=== PATIENT | male | born 1960 | race African-American/Black ===

== ENCOUNTER → 2024-11-11 23:59 | Outpatient (BNV) | payer BC, SELFPAY | PROVIDERS: Visit Provider Internal Medicine Cardiovascular Disease | DX: I21.09 ST elevation (STEMI) myocardial infarction involving other coronary artery of anterior wall (principal) | CPT/HCPCS: 93452; 99152 ==

== ENCOUNTER 2024-11-21 09:27 | Outpatient (AMB) | payer BC, SELFPAY ==
--- OUTSIDE RECORDS SUMMARY | 2024-11-21 09:50 | XMS_ITS | Encounter Summary ---
Author Organization [facility] Address [address] [place] [address] Care Team Providers Care Global Account Executive Name Role Phone Marcelino Pope MD Primary Care Provider [phone] Encounter Details Date Type Department Care Team (Late st Contact Info) Description 10/18/2024 Lab Requisition [facility] - Main Lab [address] [facility] [place] [id number] Marcelino Pope MD [address] [place] [address] Urgency of urination Social History Tobacco Use Types Packs/Day Years Used Date Smoking Tobacco: Never Assessed Sex and Gender Information Value Date Recorded Sex Assigned at Not on file Legal Sex Male 7:37 AM EST Gender Identity Not on file Sexual Orientation Not on file documented as of this encounter Plan of Treatment Scheduled Orders Name Type Priority Associated Diagnoses Orde r Schedule Urinalysis with reflex microscopic and culture Lab Routine Urgency of urination Ordered: 10/18/2024 documented as of this encounter Visit Diagnoses Diagnosis Urgency of urination documented in this encounter Care Teams Global Account Executive Relationship Specialty Start Date End Date Marcelino Pope MD [address] [place] [address] PCP - General Internal Medicine 10/18/24 documented as of this encounter
--- NOTE | 2024-11-21 09:57 | MHC.OFFVIS ---
Vital Signs 11/21/24 10:01 Height 5 ft 5 in Weight 186 lb 1.122 oz BMI 31.0 BP 110/70 Blood Pressure Location Lt brachial Position Sitting Pulse 72 Intake Visit Reasons: fu cardiac cath 11/11 Intake Note: f/up-cath-11/11 Physician Specialist Required: No Accompanied by: Self / Same As Patient Allergies No Known Allergies Allergy (Verified 11/21/24 10:01) Medication List - Last Reconciled 11/21/24 by John Rosas MD amlodipine 5 mg PO DAILY aspirin (Adult Low Dose Aspirin) 81 mg PO DAILY atorvastatin 40 mg PO DAILY cilostazol 50 mg PO BID clopidogrel 75 mg PO DAILY insulin glargine (Basaglar KwikPen U-100 Insulin) 70 units subcut BEDTIME isosorbide mononitrate ER 30 mg PO DAILY metoprolol succinate ER 50 mg PO DAILY HPI Comments Details: [age] year gentleman who is here for follow-up. He was seen at [facility] during STEMI call recently when he presented with anterolateral ST elevations. He was having vomiting and diarrhea preceding the presentation for 3 weeks. He said he started feeling some pressure-like feeling and came to the emergency department. Initial EKGs showed hyperacute T-waves which evolved into ST elevations in the anterolateral leads. He was emergently taken for cardiac catheterization. He has background history of LAD PCI approximately 20 years ago when he presented with ACS in the setting of cocaine use. He subsequently had normal LVEF. Cardiac catheterization showed patent LAD stent with 70% circumflex stenosis and 95% apical LAD stenosis. Apical LAD was felt to be a very small territory and we decided to medically treat him. 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 He was sent home on aspirin and Plavix and was advised to stop the cilostazol. It appears he is taking the cilostazol along with aspirin and Plavix. He is denying any significant symptoms currently. He continues to smoke but is trying to cut back. [facility] Surgical History (Updated 11/21/24 @ 10:08 by Karen Scott CMA) S/P cardiac cath Family History (Updated 11/21/24 @ 10:10 by Karen Scott CMA) Mother Heart attack Father Prostate cancer Social History (Updated 11/21/24 @ 10:11 by Karen M Du Scott, ASSISTANT FINANCIAL ACCOUNTANT) Alcohol intake: never Patient Tobacco Use Status: Former Tobacco user Review of Systems Const Denies chills, Denies fatigue, Denies fever(s), Denies frequent falls, Denies weakness, Denies weight gain and Denies weight loss ENT Denies dizziness Card Denies chest pain, Denies leg edema, Denies lightheadedness, Denies palpitations, Denies dyspnea, Denies dyspnea on exertion and Denies orthopnea Resp Denies cough, Denies dyspnea and Denies dyspnea on exertion GI Denies bloating and Denies change in bowel habits Musc Denies muscle weakness, Denies numbness and Denies tingling Neuro Denies dizziness, Denies frequent falls, Denies numbness, Denies tingling and Denies weakness Endo Denies fatigue and Denies palpitations Physical Exam Vital Signs: Last Vital Signs Pulse 72 11/21/24 10:01 BP 110/70 11/21/24 10:01 BMI result Body Mass Index 31.0 GENERAL APPEARANCE: in no acute distress, pleasant. NECK: no carotid bruit, no jugular venous distention. SKIN: no suspicious lesions, warm and dry. HEART: no murmurs, regular rate and rhythm. LUNGS: clear to auscultation bilaterally. ABDOMEN: soft, nontender. EXTREMITIES: no edema. PERIPHERAL PULSES: equal. NEUROLOGIC: No gross deficits, AAO X 3 Office Procedures EKG Details: Sinus rhythm 72 beats per minute, normal axis, inferior T-wave inversions, anteroseptal infarct, QTC 392 milliseconds [id number], Complete Assessment & Plan Assessment & Plan (1) Acute coronary syndrome: Code(s): I24.9 - Acute ischemic heart disease, unspecified Category: Medical (2) Coronary artery disease: Code(s): I25.10 - Atherosclerotic heart disease of [place] coronary artery without angina pectoris Category: Medical Plan [age] year gentleman with coronary artery disease who is here for follow-up. He has known history of LAD PCI in the past. Recent presentation with anterolateral ST-elevation where cardiac catheterization showed apical LAD severe stenosis. This was small territory and was medically managed. Left ventriculography showed normal LVEF without any significant wall motion abnormalities. Clinically has been stable. I have advised him to stop the aspirin and continue clopidogrel and cilostazol. Blood pressure well controlled. He will see us back in 3 months. Thank you for allowing me to participate in the care of your patient. Please feel free to contact me if you have any questions. Coding Level of Care Code Est Pt Level 4 (87623) Diagnoses Acute coronary syndrome I24.9 Coronary artery disease I25.10 CPT Codes EKG - CPT: 39731-[id number], Complete ([id number])
[2024-11-21 10:01] VITALS: BP 110/70; PULSE 72; BMI 31.0
== END 2024-11-21 11:00 | disposition home or self-care (01) ==
PROVIDERS: Visit Provider Internal Medicine Cardiovascular Disease
DX: I24.9 Acute ischemic heart disease, unspecified (principal); I25.10 Atherosclerotic heart disease of native coronary artery without angina pectoris
CPT/HCPCS: 93010; 99214

== ENCOUNTER → 2024-11-21 09:27 | Outpatient (BNVA) | payer BC, SELFPAY | PROVIDERS: Visit Provider Internal Medicine Cardiovascular Disease | DX: I25.10 Atherosclerotic heart disease of native coronary artery without angina pectoris (principal) | CPT/HCPCS: 93005 ==

== ENCOUNTER 2025-04-26 14:19 | Outpatient (AMB) | payer BC, SELFPAY ==
[2025-04-26 14:23] VITALS: BP 110/54; BMI 31.2
--- NOTE | 2025-04-26 14:23 | A.OFFVIS_ITS ---
Vital Signs 04/26/25 14:23 Height 5 ft 5 in Weight 187 lb 6.287 oz BMI 31.2 BP 110/54 L Blood Pressure Location Lt brachial Position Sitting Intake Visit Reasons: 4 mth f/up Gynecological Assistant Required: No Accompanied by: Self / Same As Patient Allergies No Known Allergies Allergy (Verified 04/26/25 14:27) Medication List - Last Reconciled 04/26/25 by Tomer Mitcehll NP amlodipine 5 mg PO DAILY atorvastatin 40 mg PO DAILY cilostazol 50 mg PO BID clopidogrel 75 mg PO DAILY empagliflozin (Jardiance) 25 mg PO DAILY insulin degludec (Tresiba FlexTouch U-100 insulin) 70 units subcut BEDTIME isosorbide mononitrate ER 30 mg PO DAILY metoprolol succinate ER 50 mg PO DAILY tirzepatide (Mounjaro) 0.7 mg subcut QWEEK HPI Comments Details: This is a 64-year-old male patient coming in for a follow-up visit. Patient with history of coronary artery disease with prior PCI to the LAD in 2006, hypertension, hyperlipidemia, diabetes, and smoker. Patient was in the emergency room back in October for chest pain where patient had acute STT wave changes and therefore was taken for emergent cardiac catheterization at [facility] that showed 70% circumflex stenosis and 95% apical LAD stenosis with patent LAD stent. It was noted that patient had a very small territory in the apical LAD and therefore was decided to medically manage his symptoms. Patient has been going to cardiac rehab twice a day and has been tolerating this well. Patient states that he was once seen in the emergency room mid November for chest pain however everything was okay and patient was discharged home. Today, patient is reporting feeling well overall without any cardiac symptoms of exertional chest pain, shortness of breath, palpitations, dizziness, orthopnea, PND, leg edema, presyncope or syncope. Unfortunately, patient continues to smoke 7 cigarettes a day and states that he is working on cutting back. [facility] Surgical History S/P cardiac cath Family History Mother Heart attack Father Prostate cancer Social History Alcohol intake: never Patient Tobacco Use Status: Former Tobacco user Review of Systems Const Denies daytime sleepiness, Denies difficulty sleeping, Denies snoring, Denies stops breathing during sleep and Denies weakness Card Denies chest pain, Denies rapid heart rate, Denies irregular heart rhythm, Denies claudication, Denies leg edema, Denies lightheadedness, Denies palpitations, Denies dyspnea, Denies dyspnea on exertion, Denies orthopnea, Denies paroxysmal nocturnal dyspnea and Denies slow heart rate Resp Denies cough, Denies dyspnea, Denies dyspnea on exertion and Denies snoring GI Reports no additional complaints, Denies hematochezia, Denies change in stool character and Denies dyspepsia Musc Denies abnormal gait, Denies muscle weakness and Denies numbness Neuro Denies abnormal gait, Denies numbness and Denies weakness Endo Denies palpitations Physical Exam Vital Signs: Last Vital Signs BP 110/54 L 04/26/25 14:23 BMI result Body Mass Index 31.2 Const General: cooperative, healthy appearing, comfortable and no acute distress Orientation/consciousness: patient oriented x3 HEENT Head: Yes normal to inspection Neck Neck: Yes normal visual inspection, Yes trachea midline and Yes supple Chest Chest palpation & inspection: normal inspection of the chest Resp Effort & Inspection: normal respiratory effort Auscultation: clear to auscultation bilaterally, no crackles, no rales, no rhonchi and no wheezes Cardio Jugular venous distension: no JVD Palpation: normal PMI Rate: regular rate Rhythm: regular rhythm Heart sounds: S1 normal heart sound present, S2 normal heart sound present, no click, no gallops, no murmurs and no rubs Peripheral pulses: Peripheral pulses 2+ throughout GI Inspection: Yes normal to inspection Palpation (GI): Soft to palpation Auscultation: normal bowel sounds Skin General skin exam: no rashes or lesions noted Neuro General: patient oriented x3 Extrem General: Yes normal to inspection, No no pedal edema and No calf tenderness Psych Appearance: grossly normal Mental Status: mental status grossly normal Speech and movement: Normal speech and movement present Assessment & Plan Assessment & Plan (1) Coronary artery disease: Code(s): I25.10 - Atherosclerotic heart disease of [place] coronary artery without angina pectoris Category: Medical Plan: Coronary artery disease with history of PCI to the LAD back in 2006. Given his recent chest pain symptoms back in November, patient underwent an emergent cardiac catheterization at [facility] with Dr. Rosas on 11/11/2024 that showed patent LAD stent with apical LAD stenosis of 90%, 70% stenosis in the distal LCX, and 100% stenosis in the proximal RCA. Given the small size territory in the apical LAD, patient was decided to be managed medically. Patient has lost resolve was stopped at his last office visit and was recommended to continue with Plavix and cilostazol therapy. Continue the same. Continue statin therapy with an LDL goal less than 70. No recent lipid profile and therefore we will get this. Continue with metoprolol and isosorbide for antianginal therapy. Continue with cardiac rehab. Discussed in detail about complete smoking cessation. Patient states that he has cut back to 7 cigarettes a day and is still working on it and he was commended for his efforts. Continue with a heart healthy diet. We will monitor his labs periodically. (2) Hypertension: Code(s): I10 - Essential (primary) hypertension Category: Medical Plan: Blood pressure today is well-controlled. Continue current regimen with a goal less than 130/80. Advised on monitoring blood pressures at home and maintaining a log. Advised on low-salt diet. (3) Diabetes: Code(s): E11.9 - Type 2 diabetes mellitus without complications Category: Medical Plan: Continue with the aggressive diabetes management with an A1c goal less than 7%, followed by PCP. Advised on heart healthy diet, regular exercise, losing weight, med compliance, complete smoking cessation, and aggressive management of vascular risk factors. Follow up in 4 months. In the interim, patient will call the office with any concerns or change in symptoms. Advised to seek ER care in case of exertional chest pain not resolved with rest. This note was generated using voice recognition software. While every effort has been made to ensure accuracy and proper diesel engine mechanic, there may be occasional errors that could affect the content or meaning of the described symptoms. Orders: Orders Lipid Panel Today I25.10 - Atherosclerotic heart disease of [place] coronary artery without angina pectoris Basic Metabolic Panel Today I25.10 - Atherosclerotic heart disease of [place] coronary artery without angina pectoris Complete Blood Count no Diff Today I25.10 - Atherosclerotic heart disease of [place] coronary artery without angina pectoris Coding Level of Care Code Est Pt Level 4 (03226) Complex EM visit Add On G2211 Diagnoses Coronary artery disease I25.10 Hypertension I10 Diabetes E11.9 Time Spent (min) 33 Comment Time spent in reviewing the chart, test results, assessment, counseling and documentation.
--- OUTSIDE RECORDS SUMMARY | 2025-04-26 16:04 | XMS_ITS | Clinical Summary ---
Author Organization [facility] Address [address] [place] [address] Phone Care Team Providers Care All Source Intelligence Technician Name Role Phone Marcelino Pope MD Primary Care Provider [phone] Encounters Date Type Department Care Team Description 03/01/[address] [facility] [address] [place] [phone] Lio Newman MD Malignant neoplasm of prostate ([facility] V24, [facility] V28) 10/18/[address] [facility] [address] [place] [address] Marcelino Pope MD Urgency of urination; Mild intermittent asthma, uncomplicated; Essential (primary) hypertension; Type 2 diabetes mellitus with hyperglycemia ([facility] V24, [facility] V28); Encounter for general adult medical examination without abnormal findings; Hyperlipidemia, unspecified; Unspecified osteoarthritis, unspecified site; Anemia, unspecified; Vitamin D deficiency, unspecified from Last 3 Months Social History Tobacco Use Types Packs/Day Years Used Date Smoking Tobacco: Never Assessed Sex and Gender Information Value Date Recorded Sex Assigned at Not on file Legal Sex Male 7:37 AM EST Gender Identity Not on file Sexual Orientation Not on file Plan of Treatment Health Maintenance Due Date Last Done Comments Colorectal Cancer Screening: Colonoscopy 1960 Diabetes: Annual Foot Exam 12/26/1969 Diabetes: Annual Retina Eye Exam 12/26/1969 Hepatitis A Vaccines (1 of 2 - Risk 2-dose series) 12/26/1978 RSV Immunization Adult Patients (1 - Risk 50-74 years 1-dose series) 12/26/2009 Hepatitis B Vaccines (3 of 3 - 19+ 3-dose series) 11/28/2015 10/03/2015, 05/03/2015, 04/02/2015 Pneumococcal Vaccine: 50+ Years (2 of 2 - PCV) 02/05/2018 02/05/2017 Zoster Vaccines (2 of 3) 05/15/2021 03/20/2021 Depression Screening 06/20/2024 Abdominal Aortic Aneurysm (AAA) Screen 10/18/2024 Hepatitis C Screening 10/18/2024 Social Influencers of Health Screening 10/18/2024 Falls Risk Assessment 12/26/2024 COVID-19 Vaccine (4 - 2024-2 6 season) 2025 06/12/2021, 08/25/2020, 08/04/2020 Influenza Vaccine (#1) 2025 02/05/2017 DTaP,Tdap,and Td Vaccines (2 - Td or Tdap) 04/02/2025 04/02/2015 Diabetes: Blood Sugar Contro l Test (HGBA1C) 09/30/2025 04/01/2025, 12/18/2024 Diabetes: Annual Urine Albumin-Creatinine Ratio (uACR) 04/01/2026 04/01/2025 Diabetes: Annual GFR (Glomerular Filtration Rate) 04/01/2026 04/01/2025, 12/18/2024 Hypertension/CHF/CAD Annual BMP Blood Test 04/01/2026 04/01/2025, 12/18/2024 Cholesterol Screening (Lipid Panel) 04/01/2030 04/01/2025, 12/18/2024 HIB Vaccines Aged Out No longer eligi ble based on patient's age to complete this topic HPV Vaccines Aged Out No longer eligi ble based on patient's age to complete this topic IPV Vaccines Aged Out No longer eligi ble based on patient's age to complete this topic MMR Vaccines Aged Out No longer eligi ble based on patient's age to complete this topic Meningococcal ACWY Vaccine Aged Out N o longer eligible based on patient's age to complete this topic Meningococcal B Vaccine Aged Out No l onger eligible based on patient's age to complete this topic RSV Immunization Patients Under 20 months Aged Out No longer eligible b ased on patient's age to complete this topic Varicella Vaccines Aged Out No longer eligible based on patient's age to complete this topic Procedures Procedure Name Priority Date/Time Associated Diagnosis Comments CBC WITH AUTO DIFFERENTIAL Routine 04/01/2025 1:38 PM EDT Urgency of urination Mild intermittent asthma, uncomplicated Essential (primary) hypertension Type 2 diabetes mellitus with hyperglycemia ([facility] V24, [facility] V28) Encounter for general adult medical examination without abnormal findings Hyperlipidemia, unspecified Unspecified osteoarthritis, unspecified site Anemia, unspecified Vitamin D deficiency, unspecified URINALYSIS WITH REFLEX MICROSCOPIC AND CULTURE Routine 04/01/2025 1:38 PM EDT Urgency of urination Mild intermittent asthma, uncomplicated Essential (primary) hypertension Type 2 diabetes mellitus with hyperglycemia ([facility] V24, [facility] V28) Encounter for general adult medical examination without abnormal findings Hyperlipidemia, unspecified Unspecified osteoarthritis, unspecified site Anemia, unspecified Vitamin D deficiency, unspecified VITAMIN D 25 HYDROXY Routine 04/01/2025 1:38 PM EDT Urgency of urination Mild intermittent asthma, uncomplicated Essential (primary) hypertension Type 2 diabetes mellitus with hyperglycemia ([facility] V24, [facility] V28) Encounter for general adult medical examination without abnormal findings Hyperlipidemia, unspecified Unspecified osteoarthritis, unspecified site Anemia, unspecified Vitamin D deficiency, unspecified FOLATE Routine 04/01/2025 1:38 PM EDT Urgency of urination Mild intermittent asthma, uncomplicated Essential (primary) hypertension Type 2 diabetes mellitus with hyperglycemia ([facility] V24, [facility] V28) Encounter for general adult medical examination without abnormal findings Hyperlipidemia, unspecified Unspecified osteoarthritis, unspecified site Anemia, unspecified Vitamin D deficiency, unspecified VITAMIN B12 Routine 04/01/2025 1:38 PM EDT Urgency of urination Mild intermittent asthma, uncomplicated Essential (primary) hypertension Type 2 diabetes mellitus with hyperglycemia ([facility] V24, [facility] V28) Encounter for general adult medical examination without abnormal findings Hyperlipidemia, unspecified Unspecified osteoarthritis, unspecified site Anemia, unspecified Vitamin D deficiency, unspecified URIC ACID Routine 04/01/2025 1:38 PM EDT Urgency of urination Mild intermittent asthma, uncomplicated Essential (primary) hypertension Type 2 diabetes mellitus with hyperglycemia ([facility] V24, [facility] V28) Encounter for general adult medical examination without abnormal findings Hyperlipidemia, unspecified Unspecified osteoarthritis, unspecified site Anemia, unspecified Vitamin D deficiency, unspecified THYROID STIMULATING HORMONE Routine 04/01/2025 1:38 PM EDT Urgency of urination Mild intermittent asthma, uncomplicated Essential (primary) hypertension Type 2 diabetes mellitus with hyperglycemia ([facility] V24, [facility] V28) Encounter for general adult medical examination without abnormal findings Hyperlipidemia, unspecified Unspecified osteoarthritis, unspecified site Anemia, unspecified Vitamin D deficiency, unspecified SEDIMENTATION RATE Routine 04/01/2025 1: 38 PM EDT Urgency of urination Mild intermittent asthma, uncomplicated Essential (primary) hypertension Type 2 diabetes mellitus with hyperglycemia ([facility] V24, [facility] V28) Encounter for general adult medical examination without abnormal findings Hyperlipidemia, unspecified Unspecified osteoarthritis, unspecified site Anemia, unspecified Vitamin D deficiency, unspecified MICROALBUMIN CREATININE URINE RATIO Routine 04/01/2025 1:38 PM EDT Urgency of urination Mild intermittent asthma, uncomplicated Essential (primary) hypertension Type 2 diabetes mellitus with hyperglycemia ([facility] V24, [facility] V28) Encounter for general adult medical examination without abnormal findings Hyperlipidemia, unspecified Unspecified osteoarthritis, unspecified site Anemia, unspecified Vitamin D deficiency, unspecified LIPID PANEL WITH REFLEX TO DIRECT LDL Routine 04/01/2025 1:38 PM EDT Urgency of urination Mild intermittent asthma, uncomplicated Essential (primary) hypertension Type 2 diabetes mellitus with hyperglycemia ([facility] V24, [facility] V28) Encounter for general adult medical examination without abnormal findings Hyperlipidemia, unspecified Unspecified osteoarthritis, unspecified site Anemia, unspecified Vitamin D deficiency, unspecified HEMOGLOBIN A1C Routine 04/01/2025 1:38 PM EDT Urgency of urination Mild intermittent asthma, uncomplicated Essential (primary) hypertension Type 2 diabetes mellitus with hyperglycemia ([facility] V24, [facility] V28) Encounter for general adult medical examination without abnormal findings Hyperlipidemia, unspecified Unspecified osteoarthritis, unspecified site Anemia, unspecified Vitamin D deficiency, unspecified COMPREHENSIVE METABOLIC PANEL Routine 04/01/2025 1:38 PM EDT Urgency of urination Mild intermittent asthma, uncomplicated Essential (primary) hypertension Type 2 diabetes mellitus with hyperglycemia ([facility] V24, [facility] V28) Encounter for general adult medical examination without abnormal findings Hyperlipidemia, unspecified Unspecified osteoarthritis, unspecified site Anemia, unspecified Vitamin D deficiency, unspecified CBC AND DIFFERENTIAL Routine 04/01/2025 1:38 PM EDT Urgency of urination Mild intermittent asthma, uncomplicated Essential (primary) hypertension Type 2 diabetes mellitus with hyperglycemia ([facility] V24, [facility] V28) Encounter for general adult medical examination without abnormal findings Hyperlipidemia, unspecified Unspecified osteoarthritis, unspecified site Anemia, unspecified Vitamin D deficiency, unspecified URINALYSIS WITH REFLEX MICROSCOPIC AND CULTURE Routine 04/01/2025 1:38 PM EDT Urgency of urination Mild intermittent asthma, uncomplicated Essential (primary) hypertension Type 2 diabetes mellitus with hyperglycemia ([facility] V24, [facility] V28) Encounter for general adult medical examination without abnormal findings Hyperlipidemia, unspecified Unspecified osteoarthritis, unspecified site Anemia, unspecified Vitamin D deficiency, unspecified PROSTATE SPECIFIC ANTIGEN DIAGNOSTIC Routine 03/01/2025 10:38 AM EDT Malignant neoplasm of prostate ([facility] V24, [facility] V28) from Last 3 Months Results * (ABNORMAL) Urinalysis with reflex microscopic and culture (04/01/2025 1:38 PM EDT) Specific [place] Urine 1.030 1.003 - 1.030 LAB URINALYSIS - AUTOMATED METHOD 04/01/2025 2:34 PM EDT [facility] pH, Urine 5.0 5.0 - 8.0 pH LAB URINALYSIS - AUTOMATED METHOD 04/01/2025 2:34 PM EDT [facility] Leukocytes, Urine Negative Negative LAB URINALYSIS - AUTOMATED METHOD 04/01/2025 2:34 PM EDT [facility] Nitrite, Urine Negative Negative LAB URINALYSIS - AUTOMATED METHOD 04/01/2025 2:34 PM EDT [facility] Protein, Urine Negative <=Trace mg/dL LAB URINALYSIS - AUTOMATED METHOD 04/01/2025 2:34 PM EDT [facility] Glucose, Urine >=1000(A) Negative mg/dL LAB URINALYSIS - AUTOMATED METHOD 04/01/2025 2:34 PM EDT [facility] Ketones, Urine Negative Negative mg/dL LAB URINALYSIS - AUTOMATED METHOD 04/01/2025 2:34 PM EDT [facility] Urobilinogen , Urine 0.2 0.2 - 1.0 mg/dL LAB URINALYSIS - AUTOMATED METHOD 04/01/2025 2:34 PM EDT [facility] Bilirubin, Urine Negative Negative LAB URINALYSIS - AUTOMATED METHOD 04/01/2025 2:34 PM EDT [facility] Blood, Urine Negative Negative LAB URINALYSIS - AUTOMATED METHOD 04/01/2025 2:34 PM EDT [facility] Urine Urine specimen obtained by clean catch procedure / Unknown 04/01/2025 1:38 PM EDT 04/01/2025 2:16 PM EDT us Marcelino Pope MD LAB URINE ORDERABLES Final Res ult [facility] [address] [place] [address], * Lipid panel with reflex to direct LDL (04/01/2025 1:38 PM EDT) Cholesterol 132 0 - 200 mg/dL LAB CHEMISTRY METHOD 04/01/2025 3:51 PM EDT [facility] Triglycerides 48 0 - 150 mg/dL LAB CHEMISTRY METHOD 04/01/2025 3:51 PM EDT [facility] HDL 58 >=40 mg/dL LAB CHEMISTRY METHOD 04/01/2025 3:51 PM EDT [facility] LDL Calculated 64 0 - 100 mg/dL LAB CHEMISTRY METHOD 04/01/2025 3:51 PM EDT [facility] Comment:Estimated LDL Calcul ated using equation: Total cholesterol - HDL cholesterol - (Triglycerides/5) VLDL Cholesterol Juancarlos 9.6 mg/dL LAB CHEMISTRY METHOD 04/01/2025 3:51 PM EDT [facility] Non HDL Chol. (LDL+VLDL) 74 <145 mg/dL LAB CHEMISTRY METHOD 04/01/2025 3:51 PM EDT [facility] Chol/HDL Ratio 2.3 0.0 - 4.4 LAB CHEMISTRY METHOD 04/01/2025 3:51 PM EDT [facility] Blood Venous blood specimen / Unknown 04/01/2025 1:38 PM EDT 04/01/2025 2:14 PM EDT Marcelino Pope MD LAB BLOOD ORDERABLES Final Res ult [facility] [address] [place] [address], * (ABNORMAL) CBC auto differential (04/01/2025 1:38 PM EDT) WBC 6.3 4.8 - 10.8 K/mcL LAB HEMETOLOGY METHOD 04/01/2025 2:40 PM EDT [facility] RBC 5.90(H) 4.50 - 5.50 M/mcL LAB HEMETOLOGY METHOD 04/01/2025 2:40 PM EDT [facility] Hemoglobin 15.9 13.5 - 17.5 g/dL LAB HEMETOLOGY METHOD 04/01/2025 2:40 PM EDT [facility] Hematocrit 49.0 42.0 - 54.0 % LAB HEMETOLOGY METHOD 04/01/2025 2:40 PM EDT [facility] MCV 83.3 79.0 - 98.0 FL LAB HEMETOLOGY METHOD 04/01/2025 2:40 PM EDT [facility] MCH 27.0 27.0 - 32.0 pcg LAB HEMETOLOGY METHOD 04/01/2025 2:40 PM EDT [facility] MCHC 32.4 32.0 - 37.0 g/dL LAB HEMETOLOGY METHOD 04/01/2025 2:40 PM EDT [facility] RDW 14.3 11.0 - 15.0 % LAB HEMETOLOGY METHOD 04/01/2025 2:40 PM T [facility] Platelets 303 130 - 400 K/mcL LAB HEMETOLOGY METHOD 04/01/2025 2:40 PM EDT [facility] MPV 9.9 7.0 - 11.0 FL LAB HEMETOLOGY METHOD 04/01/2025 2:40 PM EDT [facility] NRBC 0.0 <1.0 % LAB HEMETOLOGY METHOD 04/01/2025 2:40 PM EDT [facility] NRBC Absolute 0.00 <0.10 K/mcL LAB HEMETOLOGY METHOD 04/01/2025 2:40 PM EDT [facility] Neutrophils Relative 60.8 % LAB HEMETOLOGY METHOD 04/01/2025 2:40 PM EDT [facility] Lymphocytes Relative 27.0 % LAB HEMETOLOGY METHOD 04/01/2025 2:40 PM EDT [facility] Monocytes Relative 8.9 % LAB HEMETOLOGY METHOD 04/01/2025 2:40 PM EDT [facility] Eosinophils Relative 2.2 % LAB HEMETOLOGY METHOD 04/01/2025 2:40 PM EDT [facility] Basophils Relative 0.8 % LAB HEMETOLOGY METHOD 04/01/2025 2:40 PM EDT [facility] Immature Granulocytes Relative 0.3 % LAB HEMETOLOGY METHOD 04/01/2025 2:40 PM EDT [facility] Neutrophils Absolute 3.83 1.50 - 7.00 K/mcL LAB HEMETOLOGY METHOD 04/01/2025 2:40 PM EDT [facility] Lymphocytes Absolute 1.70 1.00 - 5.00 K/mcL LAB HEMETOLOGY METHOD 04/01/2025 2:40 PM EDT [facility] Monocytes Absolute 0.56 0.20 - 1.00 K/mcL LAB HEMETOLOGY METHOD 04/01/2025 2:40 PM EDT [facility] Eosinophils Absolute 0.14 0.00 - 0.50 K/mcL LAB HEMETOLOGY METHOD 04/01/2025 2:40 PM EDT [facility] Basophils Absolute 0.05 0.00 - 0.20 K/mcL LAB HEMETOLOGY METHOD 04/01/2025 2:40 PM EDT [facility] Immature Granulocytes Absolute 0.02 0.00 - 0.03 K/mcL LAB HEMETOLOGY METHOD 04/01/2025 2:40 PM EDT [facility] Blood Venous blood specimen / Unknown 04/01/2025 1:38 PM EDT 04/01/2025 2:17 PM EDT us Marcelino Pope MD LAB BLOOD ORDERABLES Final Res ult [facility] [address] [place] [address], * Microalbumin creatinine urine ratio (04/01/2025 1:38 PM EDT) Creatinine, Urine 114.0 mg/dL LAB CHEMISTRY METHOD 04/01/2025 4:15 PM EDT [facility] Microalb, Ur 15.0 0.0 - 29.0 mg/L LAB CHEMISTRY METHOD 04/01/2025 4:15 PM EDT [facility] Microalb/Creat Ratio 13 <30 mg/g creat LAB CHEMISTRY METHOD 04/01/2025 4:15 PM EDT [facility] Urine Urine specimen obtained by clean catch procedure / Unknown 04/01/2025 1:38 PM EDT 04/01/2025 2:15 PM EDT Marcelino Pope MD LAB URINE ORDERABLES Final Res ult Performing Organization Address [facility]/ZIP Co de Phone Number [facility] [address] [place] [address], [place] [phone] * (ABNORMAL) Vitamin D 25 hydroxy (04/01/2025 1:38 PM EDT) [facility] Vit D, 25-Hydroxy 15.3(L) 30.0 - 80.0 ng/mL LAB CHEMISTRY METHOD 04/01/2025 4:56 PM EDT [facility] Blood Venous blood specimen / Unknown 04/01/2025 1:38 PM EDT 04/01/2025 2:14 PM EDT Marcelino Pope MD LAB BLOOD ORDERABLES Final Res ult Performing Organization Address [facility]/ZIP Co de Phone Number [facility] [address] [place] [address], [place] [phone] * (ABNORMAL) Sedimentation rate (04/01/2025 1:38 PM EDT) [facility] Sed Rate 47(H) 0 - 20 mm/hr LAB HEMETOLOGY METHOD 04/01/2025 2:37 PM EDT [facility] Blood Venous blood specimen / Unknown 04/01/2025 1:38 PM EDT 04/01/2025 2:17 PM EDT Marcelino Pope MD LAB BLOOD ORDERABLES Final Res ult Performing Organization Address [facility]/ZIP Co de Phone Number [facility] [address] [place] [address], [place] [phone] * (ABNORMAL) Uric acid (04/01/2025 1:38 PM EDT) Uric Acid 3.5(L) 3.7 - 9.2 mg/dL LAB CHEMISTRY METHOD 04/01/2025 3:27 PM EDT [facility] Blood Venous blood specimen / Unknown 04/01/2025 1:38 PM EDT 04/01/2025 2:14 PM EDT Marcelino Pope MD LAB BLOOD ORDERABLES Final Res ult Performing Organization Address [facility]/ZIP Co de Phone Number [facility] [address] [place] [address], [place] [phone] * Thyroid stimulating hormone (04/01/2025 1:38 PM EDT) TSH 1.08 0.40 - 4.00 mcIU/mL LAB CHEMISTRY METHOD 04/01/2025 4:56 PM EDT [facility] Blood Venous blood specimen / Unknown 04/01/2025 1:38 PM EDT 04/01/2025 2:14 PM EDT Marcelino Pope MD LAB BLOOD ORDERABLES Final Res ult Performing Organization Address City/[facility]/ZIP Co de Phone Number [facility] [address] [place] [address], [place] [phone] * (ABNORMAL) Hemoglobin A1c (04/01/2025 1:38 PM EDT) [facility] Hemoglobin A1C 7.9(H) <6.5 % LAB CHEMISTRY METHOD 04/01/2025 9:48 PM EDT [facility] Mean Bld Glu Estim. 180 mg/dL LAB CHEMISTRY METHOD 04/01/2025 9:48 PM EDT [facility] Blood Venous blood specimen / Unknown 04/01/2025 1:38 PM EDT 04/01/2025 2:17 PM EDT us Marcelino Pope MD LAB BLOOD ORDERABLES Final Res ult [facility] [address] [place] [address], [place] [phone] * Folate (04/01/2025 1:38 PM EDT) [facility] Folate 15.2 2.8 - 17.0 ng/ml LAB CHEMISTRY METHOD 04/01/2025 3:51 PM EDT [facility] Blood Venous blood specimen / Unknown 04/01/2025 1:38 PM EDT 04/01/2025 2:14 PM EDT us Marcelino Pope MD LAB BLOOD ORDERABLES Final Res ult [facility] [address] [place] [address], [place] [phone] * Vitamin B12 (04/01/2025 1:38 PM EDT) [facility] Vitamin B-12 322 250 - 900 pcg/mL LAB CHEMISTRY METHOD 04/01/2025 3:51 PM EDT [facility] Blood Venous blood specimen / Unknown 04/01/2025 1:38 PM EDT 04/01/2025 2:14 PM EDT us Marcelino Pope MD LAB BLOOD ORDERABLES Final Res ult [facility] [address] [place] [address], [place] [phone] * Comprehensive metabolic panel (04/01/2025 1:38 PM EDT) Sodium 138 133 - 145 mmol/L LAB CHEMISTRY METHOD 04/01/2025 3:51 PM EDT [facility] Potassium 4.3 3.5 - 5.5 mmol/L LAB CHEMISTRY METHOD 04/01/2025 3:51 PM T [facility] Chloride 106 96 - 110 mmol/L LAB CHEMISTRY METHOD 04/01/2025 3:[address] [facility] CO2 22 21 - 32 mmol/L LAB CHEMISTRY METHOD 04/01/2025 3:[address] [facility] Anion Gap 10 3 - 11 LAB CHEMISTRY METHOD 04/01/2025 3:[address] [facility] Glucose 71 70 - 100 mg/dL LAB CHEMISTRY METHOD 04/01/2025 3:[address] [facility] BUN 11 5 - 25 mg/dL LAB CHEMISTRY METHOD 04/01/2025 3:[address] [facility] Creatinine 0.96 0.70 - 1.30 mg/dL LAB CHEMISTRY METHOD 04/01/2025 3:[address] [facility] eGFR 88 >=60 mL/min/1. 73m2 LAB CHEMISTRY METHOD 04/01/2025 3:[address] [facility] Comment:Calculation based on the Chronic Kidney Disease Epidemiology Collaboration (CKD-EPI) equation refit without adjustment for race. BUN/Creatinine Ratio 11.5 LAB CHEMISTRY METHOD 04/01/2025 3:[address] [facility] Calcium 9.5 8.5 - 10.5 mg/dL LAB CHEMISTRY METHOD 04/01/2025 3:51 PM EDT [facility] AST (SGOT) 21 10 - 42 unit/L LAB CHEMISTRY METHOD 04/01/2025 3:51 PM EDT [facility] ALT (SGPT) 38 10 - 60 unit/L LAB CHEMISTRY METHOD 04/01/2025 3:51 PM EDT [facility] Alkaline Phosphatase 118 42 - 121 unit/L LAB CHEMISTRY METHOD 04/01/2025 3:51 PM EDT [facility] Total Protein 7.2 6.0 - 8.0 g/dL LAB CHEMISTRY METHOD 04/01/2025 3:51 PM EDT [facility] Albumin 3.9 3.2 - 5.0 g/dL LAB CHEMISTRY METHOD 04/01/2025 3:51 PM EDT [facility] Total Bilirubin 0.4 0.0 - 1.4 mg/dL LAB CHEMISTRY METHOD 04/01/2025 3:51 PM EDT [facility] Blood Venous blood specimen / Unknown 04/01/2025 1:38 PM EDT 04/01/2025 2:14 PM EDT Marcelino Pope MD LAB BLOOD ORDERABLES Final Res ult [facility] [address] [place] [address], * Prostate specific antigen diagnostic (03/01/2025 10:38 AM EDT) PSA 0.59 0.00 - 4.00 ng/mL LAB CHEMISTRY METHOD 03/01/2025 3:07 PM EDT [facility] Blood Venous blood specimen / Unknown 03/01/2025 10:38 AM EDT 03/01/2025 1:49 PM EDT Narrative [facility] - 03/01/2025 3:07 PM EDT The Siemens Advia Centaur Chemiluminescent Immunoassay is used. Results obtained with different assay methods or kits cannot be used interchangeably. Results cannot be interpreted as absolute evidence of the presence or absence of malignant disease. us Lio Newman MD LAB BLOOD ORDERABLES Final Resul t [facility] [address] [place] [address], from Last 3 Months Insurance [facility] Care Teams All Source Intelligence Technician Relationship Specialty Start Date End Date Marcelino Pope MD [address] [place] [address] PCP - General Internal Medicine 10/18/24
--- OUTSIDE RECORDS SUMMARY | 2025-04-26 16:04 | XMS_ITS | Encounter Summary ---
Author Organization [facility] Address [address] [place] [address] Care Team Providers Care Braille Operator Name Role Phone Marcelino Pope MD Primary Care Provider [phone] Encounter Details Date Type Department Care Team (Late st Contact Info) Description 03/01/[address] [facility] - Main Lab [address] [place] [phone] Lio Newman MD [address] [phone] Malignant neoplasm of prostate ([facility]/HCC V24, CMS/HCC V28) Social History Tobacco Use Types Packs/Day Years Used Date Smoking Tobacco: Never Assessed Sex and Gender Information Value Date Recorded Sex Assigned at Not on file Legal Sex Male 7:37 AM EST Gender Identity Not on file Sexual Orientation Not on file documented as of this encounter Plan of Treatment Not on file documented as of this encounter Procedures Procedure Name Priority Date/Time Associated Diagnosis Comments PROSTATE SPECIFIC ANTIGEN DIAGNOSTIC Routine 03/01/2025 10:38 AM EDT Malignant neoplasm of prostate (CMS/HCC V24, CMS/HCC V28) documented in this encounter Results * Prostate specific antigen diagnostic (03/01/2025 10:38 AM EDT) PSA 0.59 0.00 - 4.00 ng/mL LAB CHEMISTRY METHOD 03/01/2025 3:07 PM EDT [facility] Blood Venous blood specimen / Unknown 03/01/2025 10:38 AM EDT 03/01/2025 1:49 PM EDT Narrative [facility] - 03/01/2025 3:07 PM EDT The Siemens Advia Centaur Chemiluminescent Immunoassay is used. Results obtained with different assay methods or kits cannot be used interchangeably. Results cannot be interpreted as absolute evidence of the presence or absence of malignant disease. us Lio Newman MD LAB BLOOD ORDERABLES Final Resul t [facility] [address] [place] [address], [place] [phone] documented in this encounter Visit Diagnoses Diagnosis Malignant neoplasm of prostate (CMS/HCC V24, CMS/HCC V28) Malignant neoplasm of prostate documented in this encounter Care Teams Braille Operator Relationship Specialty Start Date End Date Marcelino Pope MD [address] [place] [address] PCP - General Internal Medicine 10/18/24 documented as of this encounter
--- OUTSIDE RECORDS SUMMARY | 2025-04-26 16:04 | XMS_ITS | Encounter Summary ---
Author Organization [facility] Address [address] [place] [address] Care Team Providers Care Termination Clerk Name Role Phone Marcelino Pope MD Primary Care Provider [phone] Encounter Details Date Type Department Care Team (Latest Contact Info) Description 10/18/2024 Lab Requisition [facility] - Main Lab [address] [place] [phone] Marcelino Pope MD [address] [place] [address] Urgency of urination; Mild intermittent asthma, uncomplicated; Essential (primary) hypertension; Type 2 diabetes mellitus with hyperglycemia (CMS/[facility] V24, CMS/[facility] V28); Encounter for general adult medical examination without abnormal findings; Hyperlipidemia, unspecified; Unspecified osteoarthritis, unspecified site; Anemia, unspecified; Vitamin D deficiency, unspecified Social History Tobacco Use Types Packs/Day Years [...] Procedure Name Priority Date/Time Associated Diagnosis Comments URINALYSIS WITH REFLEX MICROSCOPIC AND CULTURE Routine 04/01/2025 1:38 PM EDT Urgency of urination Mild intermittent asthma, uncomplicated Essential (primary) hypertension Type 2 diabetes mellitus with hyperglycemia (CMS/HCC V24, CMS/[facility] V28) Encounter for general adult medical examination without abnormal findings Hyperlipidemia, unspecified Unspecified osteoarthritis, unspecified site Anemia, unspecified Vitamin D deficiency, unspecified LIPID PANEL WITH REFLEX TO DIRECT LDL Routine 04/01/2025 1:38 PM EDT Urgency of urination Mild intermittent asthma, uncomplicated Essential (primary) hypertension Type 2 diabetes mellitus with hyperglycemia ([facility] V24, [facility] V28) Encounter for general adult medical examination without abnormal findings Hyperlipidemia, unspecified Unspecified osteoarthritis, unspecified site Anemia, unspecified Vitamin D deficiency, unspecified CBC WITH AUTO DIFFERENTIAL Routine 04/01/2025 1:38 PM EDT Urgency of urination Mild intermittent asthma, uncomplicated Essential (primary) hypertension Type 2 diabetes mellitus with hyperglycemia ([facility] V24, [facility] V28) Encounter for general adult medical examination without abnormal findings Hyperlipidemia, unspecified Unspecified osteoarthritis, unspecified site Anemia, unspecified Vitamin D deficiency, unspecified MICROALBUMIN CREATININE URINE RATIO Routine 04/01/2025 1:38 PM EDT Urgency of urination Mild intermittent asthma, uncomplicated Essential (primary) hypertension Type 2 diabetes mellitus with hyperglycemia ([facility] V24, [facility] V28) Encounter for general adult medical examination without abnormal findings Hyperlipidemia, unspecified Unspecified osteoarthritis, unspecified site Anemia, unspecified Vitamin D deficiency, unspecified VITAMIN D 25 HYDROXY Routine 04/01/2025 1:38 PM EDT Urgency of urination Mild intermittent asthma, uncomplicated Essential (primary) hypertension Type 2 diabetes mellitus with hyperglycemia ([facility] V24, [facility] V28) Encounter for general adult medical examination without abnormal findings Hyperlipidemia, unspecified Unspecified osteoarthritis, unspecified site Anemia, unspecified Vitamin D deficiency, unspecified URINALYSIS WITH REFLEX MICROSCOPIC AND CULTURE Routine 04/01/2025 1:38 PM EDT Urgency of urination Mild intermittent asthma, uncomplicated Essential (primary) hypertension Type 2 diabetes mellitus with hyperglycemia ([facility] V24, [facility] V28) Encounter for general adult medical examination without abnormal findings Hyperlipidemia, unspecified Unspecified osteoarthritis, unspecified site Anemia, unspecified Vitamin D deficiency, unspecified SEDIMENTATION RATE Routine 04/01/2025 1: 38 PM EDT Urgency of urination Mild intermittent asthma, uncomplicated Essential (primary) hypertension Type 2 diabetes mellitus with hyperglycemia ([facility] V24, [facility] V28) Encounter for general adult medical examination without abnormal findings Hyperlipidemia, unspecified Unspecified osteoarthritis, unspecified site Anemia, unspecified Vitamin D deficiency, unspecified CBC AND DIFFERENTIAL Routine 04/01/2025 1:38 PM EDT Urgency of urination Mild intermittent asthma, uncomplicated Essential (primary) hypertension Type 2 diabetes mellitus with hyperglycemia ([facility] V24, [facility] V28) Encounter for general adult medical examination without abnormal findings Hyperlipidemia, unspecified Unspecified osteoarthritis, unspecified site Anemia, unspecified Vitamin D deficiency, unspecified URIC ACID Routine 04/01/2025 1:38 PM EDT Urgency of urination Mild intermittent asthma, uncomplicated Essential (primary) hypertension Type 2 diabetes mellitus with hyperglycemia ([facility] V24, [facility] V28) Encounter for general adult medical examination without abnormal findings Hyperlipidemia, unspecified Unspecified osteoarthritis, unspecified site Anemia, unspecified Vitamin D deficiency, unspecified THYROID STIMULATING HORMONE Routine 04/01/2025 1:38 PM EDT Urgency of urination Mild intermittent asthma, uncomplicated Essential (primary) hypertension Type 2 diabetes mellitus with hyperglycemia ([facility] V24, [facility] V28) Encounter for general adult medical examination without abnormal findings Hyperlipidemia, unspecified Unspecified osteoarthritis, unspecified site Anemia, unspecified Vitamin D deficiency, unspecified HEMOGLOBIN A1C Routine 04/01/2025 1:38 PM EDT Urgency of urination Mild intermittent asthma, uncomplicated Essential (primary) hypertension Type 2 diabetes mellitus with hyperglycemia ([facility] V24, [facility] V28) Encounter for general adult medical examination without abnormal findings Hyperlipidemia, unspecified Unspecified osteoarthritis, unspecified site Anemia, unspecified Vitamin D deficiency, unspecified FOLATE Routine 04/01/2025 1:38 PM EDT Urgency of urination Mild intermittent asthma, uncomplicated Essential (primary) hypertension Type 2 diabetes mellitus with hyperglycemia ([facility] V24, [facility] V28) Encounter for general adult medical examination without abnormal findings Hyperlipidemia, unspecified Unspecified osteoarthritis, unspecified site Anemia, unspecified Vitamin D deficiency, unspecified VITAMIN B12 Routine 04/01/2025 1:38 PM EDT Urgency of urination Mild intermittent asthma, uncomplicated Essential (primary) hypertension Type 2 diabetes mellitus with hyperglycemia ([facility] V24, [facility] V28) Encounter for general adult medical examination without abnormal findings Hyperlipidemia, unspecified Unspecified osteoarthritis, unspecified site Anemia, unspecified Vitamin D deficiency, unspecified COMPREHENSIVE METABOLIC PANEL Routine 04/01/2025 1:38 PM EDT Urgency of urination Mild intermittent asthma, uncomplicated Essential (primary) hypertension Type 2 diabetes mellitus with hyperglycemia ([facility] V24, [facility] V28) Encounter for general adult medical examination without abnormal findings Hyperlipidemia, unspecified Unspecified osteoarthritis, unspecified site Anemia, unspecified Vitamin D deficiency, unspecified documented in this encounter Results * (ABNORMAL) CBC auto differential (04/01/2025 1:38 PM EDT) [facility] WBC 6.3 4.8 - 10.8 K/mcL LAB HEMETOLOGY METHOD 04/01/2025 2:40 PM EDT [facility] RBC 5.90(H) 4.50 - 5.50 M/mcL LAB HEMETOLOGY METHOD 04/01/2025 2:40 PM EDT [facility] Hemoglobin 15.9 13.5 - 17.5 g/dL LAB HEMETOLOGY METHOD 04/01/2025 2:40 PM EDT [facility] Hematocrit 49.0 42.0 - 54.0 % LAB HEMETOLOGY METHOD 04/01/2025 2:40 PM EDT [facility] MCV 83.3 79.0 - 98.0 FL LAB HEMETOLOGY METHOD 04/01/2025 2:40 PM EDT [facility] MCH 27.0 27.0 - 32.0 pcg LAB HEMETOLOGY METHOD 04/01/2025 2:40 PM EDT [facility] MCHC 32.4 32.0 - 37.0 g/dL LAB HEMETOLOGY METHOD 04/01/2025 2:40 PM EDT [facility] RDW 14.3 11.0 - 15.0 % LAB HEMETOLOGY METHOD 04/01/2025 2:40 PM [facility] Platelets 303 130 - 400 K/mcL LAB HEMETOLOGY METHOD 04/01/2025 2:40 PM T [facility] MPV 9.9 7.0 - 11.0 FL LAB HEMETOLOGY METHOD 04/01/2025 2:40 PM EDT [facility] NRBC 0.0 <1.0 % LAB HEMETOLOGY METHOD 04/01/2025 2:40 PM [facility] NRBC Absolute 0.00 <0.10 K/mcL LAB HEMETOLOGY METHOD 04/01/2025 2:40 PM [facility] Neutrophils Relative 60.8 % LAB HEMETOLOGY METHOD 04/01/2025 2:40 PM [facility] Lymphocytes Relative 27.0 % LAB HEMETOLOGY METHOD 04/01/2025 2:40 PM [facility] Monocytes Relative 8.9 % LAB HEMETOLOGY METHOD 04/01/2025 2:40 PM [facility] Eosinophils Relative 2.2 % LAB HEMETOLOGY METHOD 04/01/2025 2:40 PM T [facility] Basophils Relative 0.8 % LAB HEMETOLOGY METHOD 04/01/2025 2:[facility] Immature Granulocytes Relative 0.3 % LAB HEMETOLOGY METHOD 04/01/2025 2:40 PM [facility] Neutrophils Absolute 3.83 1.50 - 7.00 K/mcL LAB HEMETOLOGY METHOD 04/01/2025 2:40 PM T [facility] Lymphocytes Absolute 1.70 1.00 - 5.00 K/mcL LAB HEMETOLOGY METHOD 04/01/2025 2:40 PM EDT [facility] Monocytes Absolute 0.56 0.20 - 1.00 K/[facility] LAB HEMETOLOGY METHOD 04/01/2025 2:40 PM EDT [facility] Eosinophils Absolute 0.14 0.00 - 0.50 K/mcL LAB HEMETOLOGY METHOD 04/01/2025 2:40 PM EDT [facility] Basophils Absolute 0.05 0.00 - 0.20 K/[facility] LAB HEMETOLOGY METHOD 04/01/2025 2:40 PM EDT [facility] Immature Granulocytes Absolute 0.02 0.00 - 0.03 K/[facility] LAB HEMETOLOGY METHOD 04/01/2025 2:40 PM EDT [facility] Blood Venous blood specimen / Unknown 04/01/2025 1:38 PM EDT 04/01/2025 2:17 PM EDT us Marcelino Pope MD LAB BLOOD ORDERABLES Final Res ult [facility] [address] [place] [address], [place] [phone] * (ABNORMAL) Urinalysis with reflex microscopic and culture (04/01/2025 1:38 PM EDT) Specific [place] Urine 1.030 1.003 - 1.030 LAB URINALYSIS - AUTOMATED METHOD 04/01/2025 2:34 PM EDT [facility] pH, Urine 5.0 5.0 - 8.0 pH LAB URINALYSIS - AUTOMATED METHOD 04/01/2025 2:34 PM EDT [facility] Leukocytes, Urine Negative Negative LAB URINALYSIS - AUTOMATED METHOD 04/01/2025 2:34 PM EDT [facility] Nitrite, Urine Negative Negative LAB URINALYSIS - AUTOMATED METHOD 04/01/2025 2:34 PM EDT [facility] Protein, Urine Negative <=Trace mg/dL LAB URINALYSIS - AUTOMATED METHOD 04/01/2025 2:34 PM EDT [facility] Glucose, Urine >=1000(A) Negative mg/dL LAB URINALYSIS - AUTOMATED METHOD 04/01/2025 2:34 PM EDT [facility] Ketones, Urine Negative Negative mg/dL LAB URINALYSIS - AUTOMATED METHOD 04/01/2025 2:34 PM EDT [facility] Urobilinogen , Urine 0.2 0.2 - 1.0 mg/dL LAB URINALYSIS - AUTOMATED METHOD 04/01/2025 2:34 PM EDT [facility] Bilirubin, Urine Negative Negative LAB URINALYSIS - AUTOMATED METHOD 04/01/2025 2:34 PM EDT [facility] Blood, Urine Negative Negative LAB URINALYSIS - AUTOMATED METHOD 04/01/2025 2:34 PM EDT [facility] Urine Urine specimen obtained by clean catch procedure / Unknown 04/01/2025 1:38 PM EDT 04/01/2025 2:16 PM EDT us Marcelino Pope MD LAB URINE ORDERABLES Final Res ult [facility] [address] [place] [address], * (ABNORMAL) Vitamin D 25 hydroxy (04/01/2025 1:38 PM EDT) Vit D, 25-Hydroxy 15.3(L) 30.0 - 80.0 ng/mL LAB CHEMISTRY METHOD 04/01/2025 4:56 PM EDT [facility] Blood Venous blood specimen / Unknown 04/01/2025 1:38 PM EDT 04/01/2025 2:14 PM EDT us Marcelino Pope MD LAB BLOOD ORDERABLES Final Res ult Performing Organization Address [facility] Co de Phone Number [facility] [address] [place] [address], [place] [phone] * Folate (04/01/2025 1:38 PM EDT) [facility] Folate 15.2 2.8 - 17.0 ng/ml LAB CHEMISTRY METHOD 04/01/2025 3:51 PM EDT [facility] Blood Venous blood specimen / Unknown 04/01/2025 1:38 PM EDT 04/01/2025 2:14 PM EDT us Marcelino Pope MD LAB BLOOD ORDERABLES Final Res ult Performing Organization Address [facility] de Phone Number [facility] [address] [place] [address], [place] [phone] * Vitamin B12 (04/01/2025 1:38 PM EDT) [facility] Vitamin B-12 322 250 - 900 pcg/mL LAB CHEMISTRY METHOD 04/01/2025 3:51 PM EDT [facility] Blood Venous blood specimen / Unknown 04/01/2025 1:38 PM EDT 04/01/2025 2:14 PM EDT us Marcelino Pope MD LAB BLOOD ORDERABLES Final Res ult Performing Organization Address [facility]/ZIP Co de Phone Number [facility] [address] [place] [address], [place] [phone] * (ABNORMAL) Uric acid (04/01/2025 1:38 PM EDT) [facility] Uric Acid 3.5(L) 3.7 - 9.2 mg/dL LAB CHEMISTRY METHOD 04/01/2025 3:27 PM EDT [facility] Blood Venous blood specimen / Unknown 04/01/2025 1:38 PM EDT 04/01/2025 2:14 PM EDT Marcelino Pope MD LAB BLOOD ORDERABLES Final Res ult Performing Organization Address City/[facility]/ZIP Co de Phone Number [facility] [address] [place] [address], [place] [phone] * Thyroid stimulating hormone (04/01/2025 1:38 PM EDT) TSH 1.08 0.40 - 4.00 mcIU/mL LAB CHEMISTRY METHOD 04/01/2025 4:56 PM EDT [facility] Blood Venous blood specimen / Unknown 04/01/2025 1:38 PM EDT 04/01/2025 2:14 PM EDT Marcelino Pope MD LAB BLOOD ORDERABLES Final Res ult Performing Organization Address [facility]/ZIP Co de Phone Number [facility] [address] [place] [address], [place] [phone] * (ABNORMAL) Sedimentation rate (04/01/2025 1:38 PM EDT) Sed Rate 47(H) 0 - 20 mm/hr LAB HEMETOLOGY METHOD 04/01/2025 2:37 PM EDT [facility] Blood Venous blood specimen / Unknown 04/01/2025 1:38 PM EDT 04/01/2025 2:17 PM EDT Marcelino Pope MD LAB BLOOD ORDERABLES Final Res ult [facility] [address] [place] [address], [place] [phone] * Microalbumin creatinine urine ratio (04/01/2025 1:38 PM EDT) Creatinine, Urine 114.0 mg/dL LAB CHEMISTRY METHOD 04/01/2025 4:15 PM EDT [facility] Microalb, Ur 15.0 0.0 - 29.0 mg/L LAB CHEMISTRY METHOD 04/01/2025 4:15 PM EDT [facility] Microalb/Creat Ratio 13 <30 mg/g creat LAB CHEMISTRY METHOD 04/01/2025 4:15 PM EDT [facility] Urine Urine specimen obtained by clean catch procedure / Unknown 04/01/2025 1:38 PM EDT 04/01/2025 2:15 PM EDT us Marcelino Pope MD LAB URINE ORDERABLES Final Res ult [facility] [address] [place] [address], [place] [phone] * Lipid panel with reflex to direct LDL (04/01/2025 1:38 PM EDT) Pathologist [facility] Cholesterol 132 0 - 200 mg/dL LAB CHEMISTRY METHOD 04/01/2025 3:51 PM EDT [facility] Triglycerides 48 0 - 150 mg/dL LAB CHEMISTRY METHOD 04/01/2025 3:51 PM EDT [facility] HDL 58 >=40 mg/dL LAB CHEMISTRY METHOD 04/01/2025 3:51 PM EDT [facility] LDL Calculated 64 0 - 100 mg/dL LAB CHEMISTRY METHOD 04/01/2025 3:51 PM EDT [facility] Comment:Estimated LDL Calcul ated using equation: Total cholesterol - HDL cholesterol - (Triglycerides/5) VLDL Cholesterol Juancarlos 9.6 mg/dL LAB CHEMISTRY METHOD 04/01/2025 3:51 PM EDT [facility] Non HDL Chol. (LDL+VLDL) 74 <145 mg/dL LAB CHEMISTRY METHOD 04/01/2025 3:51 PM EDT [facility] Chol/HDL Ratio 2.3 0.0 - 4.4 LAB CHEMISTRY METHOD 04/01/2025 3:51 PM EDT [facility] Blood Venous blood specimen / Unknown 04/01/2025 1:38 PM EDT 04/01/2025 2:14 PM EDT Marcelino Pope MD LAB BLOOD ORDERABLES Final Res ult Performing Organization Address City/[facility]/ZIP Co de Phone Number [facility] [address] [place] [address], [place] [phone] * (ABNORMAL) Hemoglobin A1c (04/01/2025 1:38 PM EDT) Pathologist [facility] Hemoglobin A1C 7.9(H) <6.5 % LAB CHEMISTRY METHOD 04/01/2025 9:48 PM EDT [facility] Mean Bld Glu Estim. 180 mg/dL LAB CHEMISTRY METHOD 04/01/2025 9:48 PM EDT [facility] Blood Venous blood specimen / Unknown 04/01/2025 1:38 PM EDT 04/01/2025 2:17 PM EDT Marcelino Pope MD LAB BLOOD ORDERABLES Final Res ult [facility] [address] [place] [address], [place] [phone] * Comprehensive metabolic panel (04/01/2025 1:38 PM EDT) Pathologist [facility] Sodium 138 133 - 145 mmol/L LAB CHEMISTRY METHOD 04/01/2025 3:51 PM EDT [facility] Potassium 4.3 3.5 - 5.5 mmol/L LAB CHEMISTRY METHOD 04/01/2025 3:51 PM [facility] Chloride 106 96 - 110 mmol/L LAB CHEMISTRY METHOD 04/01/2025 3:51 PM [facility] CO2 22 21 - 32 mmol/L LAB CHEMISTRY METHOD 04/01/2025 3:51 PM [facility] Anion Gap 10 3 - 11 LAB CHEMISTRY METHOD 04/01/2025 3:51 PM [facility] Glucose 71 70 - 100 mg/dL LAB CHEMISTRY METHOD 04/01/2025 3:51 PM [facility] BUN 11 5 - 25 mg/dL LAB CHEMISTRY METHOD 04/01/2025 3:51 PM [facility] Creatinine 0.96 0.70 - 1.30 mg/dL LAB CHEMISTRY METHOD 04/01/2025 3:51 PM [facility] eGFR 88 >=60 mL/min/1. 73m2 LAB CHEMISTRY METHOD 04/01/2025 3:51 PM [facility] Comment:Calculation based on the Chronic Kidney Disease Epidemiology Collaboration (CKD-EPI) equation refit without adjustment for race. BUN/Creatinine Ratio 11.5 LAB CHEMISTRY METHOD 04/01/2025 3:51 PM [facility] Calcium 9.5 8.5 - 10.5 mg/dL LAB CHEMISTRY METHOD 04/01/2025 3:51 PM [facility] AST (SGOT) 21 10 - 42 unit/L LAB CHEMISTRY METHOD 04/01/2025 3:51 PM [facility] ALT (SGPT) 38 10 - 60 unit/L LAB CHEMISTRY METHOD 04/01/2025 3:51 PM [facility] Alkaline Phosphatase 118 42 - 121 unit/L LAB CHEMISTRY METHOD 04/01/2025 3:51 PM [facility] Total Protein 7.2 6.0 - 8.0 g/dL LAB CHEMISTRY METHOD 04/01/2025 3:51 PM EDT [facility] Albumin 3.9 3.2 - 5.0 g/dL LAB CHEMISTRY METHOD 04/01/2025 3:51 PM EDT [facility] Total Bilirubin 0.4 0.0 - 1.4 mg/dL LAB CHEMISTRY METHOD 04/01/2025 3:51 PM EDT [facility] Blood Venous blood specimen / Unknown 04/01/2025 1:38 PM EDT 04/01/2025 2:14 PM EDT us Marcelino Pope MD LAB BLOOD ORDERABLES Final Res ult [facility] [address] [place] [address], documented in this encounter Visit Diagnoses Diagnosis Urgency of urination Mild intermittent asthma, uncomplicated Essential (primary) hypertension Unspecified essential hypertension Type 2 diabetes mellitus with hyperglycemia (CMS/[facility] V24, [facility] V28) Encounter for general adult medical examination without abnormal findings Hyperlipidemia, unspecified Unspecified osteoarthritis, unspecified site Anemia, unspecified Vitamin D deficiency, unspecified documented in this encounter Care Teams Termination Clerk Relationship Specialty Start Date End Date Marcelino Pope MD [address] [place] [address] PCP - General Internal Medicine 10/18/24 documented as of this encounter
== END 2025-04-26 14:58 | disposition home or self-care (01) ==
LOC: HO.HCS 14:20
DX: I25.10 Atherosclerotic heart disease of native coronary artery without angina pectoris (principal); I10 Essential (primary) hypertension; E11.9 Type 2 diabetes mellitus without complications
CPT/HCPCS: 99214